=== PATIENT | female | born 1945 | race Caucasian/White ===

== ENCOUNTER → 2016-07-13 | Outpatient (CLI) | payer BC ==
[~2016-07-13] MED LIST: ASPI81TA28 PO; ATOR10TA88 PO; CALC1TAB9 PO; CYAN100T PO; GLUCTAB7 PO; MULT-513 PO
--- NOTE | 2016-07-13 10:59 | DIAGNOSTIC IMAGING REPORT ---
CHEST 2 VIEWS ROUTINE CLINICAL HISTORY: Cough. Evaluate for aspiration COMPARISON STUDY: Chest radiograph June 27, 2016. FINDINGS: Lung volumes are normal. There is no pneumothorax or pleural effusion. Linear left midlung opacity suggests atelectasis. There is no pneumothorax or pleural effusion. Cardiac size is normal. Mediastinal contours are normal. There is mild gaseous distention of the visualized portions of the colon. IMPRESSION: 1. No areas of consolidation to suggest pneumonia. 2. Linear left midlung opacity suggestive of atelectasis. Electronically signed by: Edison Morales M.D. 07/13/2016 10:57 AM
--- NOTE | 2016-07-17 08:22 | CODING QUERY NO DIAGNOSIS ---
: 1945 TREATMENT RENDERED WITHOUT A DIAGNOSIS To promote full compliance with coding requirements relating to patient care, physician participation is requested in all cases of medical billing coder uncertainty. Please assist us with providing a diagnosis/symptom for the test(s) below: A diagnosis/symptom was not documented on your Order. A valid diagnosis/symptom is required to bill all insurances. Please remember that we are unable to code a diagnosis of rule out, probable, possible, questionable, or suspected. Tests that require a diagnosis: DOS: 07/13/16 * Chest X-ray, 2 Views DIAGNOSIS: Provider Signature: Date: Thank you Shelbie Shepard Health Information Management Once completed, please kindly fax back to [phone] For questions please call [phone]
== END | disposition home or self-care (01) ==
LOC: C.RAD 10:32
PROVIDERS: ATTEND Internal Medicine Gastroenterology
DX: R05 Cough (principal); R91.8 Other nonspecific abnormal finding of lung field

== ENCOUNTER 2016-12-03 21:11 | Observation (INO) | payer BC ==
[~2016-12-03] VITALS: Ht 172.7 cm; Wt 73.5 kg
[2016-12-03 21:48] LABS: BASO % 0.4 %; BASO ABS # 0.02 K/uL (0-0.2); COMPLETE YES; EOS % 5.1 %; HEMATOCRIT 39.3 % (37-47); LYMPH % 33.2 %; LYMPH ABS # 1.77 K/uL (1.2-3.4); MEAN CELL VOLUME 86.9 fL (80-100); MEAN CORPUSCULAR HEMOGLOBIN 29.9 pg (25-34); MEAN CORPUSCULAR HGB CONC 34.4 g/dl (32-36); MEAN PLATELET VOLUME 9.1 fL (7.4-10.4); MONO % 14.3 %; PLATELET COUNT 189 K/uL (130-400); RED BLOOD COUNT 4.52 M/uL (4.2-5.4); WHITE BLOOD COUNT 5.33 K/uL (4.8-10.8)
--- NOTE | 2016-12-03 21:53 | EMERGENCY ROOM VISIT NOTE ---
ED Visit Note First contact with patient: 21:23 I did evaluate and examine this patient myself. I did guide management for the patient. I agree with the APC's assessment as discussed. Please see the APC's dictation for further details. I did independently review the 12 EKG, chest x- ray and blood work.
[2016-12-03 21:55] LABS: BLOOD UREA NITROGEN 17 mg/dl (7-18); BUN/CREATININE RATIO 20.6 (10-20); CARBON DIOXIDE 29 mmol/L (21-32); CHLORIDE 104 mmol/L (98-107); CREATININE 0.82 mg/dl (0.60-1.20); GLUCOSE 81 mg/dl (70-99); POTASSIUM 3.3 mmol/L (3.5-5.1); SODIUM 141 mmol/L (136-145)
[2016-12-03 22:00] LABS: ALKALINE PHOSPHATASE 94 U/L (45-117); ALT/SGPT 43 U/L (12-78); AST/SGOT 28 U/L (15-37)
[2016-12-03] MEDS ORDERED: GLUCTAB7 PO (22:07)
[2016-12-03] MEDS ORDERED: MULT-513 PO (22:07)
[2016-12-03] MEDS ORDERED: CALC1TAB9 PO (22:07)
[2016-12-03] MEDS ORDERED: ATOR10TA82 PO (22:07)
[2016-12-03] MEDS ORDERED: ASPI81TA28 PO (22:07)
[2016-12-03] MEDS ORDERED: CYAN100T PO (22:07)
--- NOTE | 2016-12-03 22:08 | DIAGNOSTIC IMAGING REPORT ---
CHEST ONE VIEW PORTABLE HISTORY: Atypical CHEST PAIN COMPARISON: Chest 07/13/2016. FINDINGS: The lungs are clear. Cardiac silhouette is normal in size. No pleural effusions. No pneumothorax. IMPRESSION: No acute process. Electronically signed by: Jeremías Aguila M.D. 12/03/2016 10:06 PM Dictated Date/Time: 12/03/2016 10:05 PM
[2016-12-03] MEDS ORDERED: POTASSIUM CHLORIDE 10 MEQ TABCR PO STA (22:32)
--- NOTE | 2016-12-04 00:40 | EMERGENCY ROOM VISIT NOTE ---
History First contact with patient: 21:23 Chief Complaint: CHEST PAIN Stated Complaint: CHEST PAIN Nursing Triage Summary: pt walked up stairs and she developed a sharp pain in mid chest, sat down and it went away she got up again and she got the pain again radiating to right side of chest and called 911. pain then went away and when ems arrived and had her wak a couple steps to litter she developed a dull ache in mid chest radiating to right side of chest. pt given 2 baby asa enroute History of Present Illness The patient is a 71 year old female who presents to the Emergency Room with complaints of exertional chest pain tonight. Patient states she got up to go to the kitchen developed chest pain and then went to sit down and the chest pain resolved. She did this 3 times over. She is currently chest pain-free. She takes a daily baby aspirin and EMS gave her 2 more. Patient states she is currently asymptomatic. Her father of a massive heart attack at age 58. She does stress test one year ago that was normal per patient. Patient does have high cholesterol. Patient denies diabetes, high blood pressure, tobacco use. Patient states she gets the gym 4 times a week without difficulties. She does circuit training. Patient denies dyspnea, fever, chills, diaphoresis, nausea, vomiting, diarrhea, back pain, radiating pain, leg pain or swelling. Review of Systems See HPI for pertinent positives & negatives. A total of 10 systems reviewed and were otherwise negative. Past Medical/Surgical History Hyperlipidemia Social History Smoking Status: Never Smoker Smokeless Tobacco Use: No Alcohol Use: occasionally Drug Use: none Marital Status: Housing Status: lives with family Occupation Status: retired Current/Historical Medications Scheduled Aspirin (Aspirin Ec), 81 MG PO DAILY Atorvastatin (Lipitor), 10 MG PO DAILY Calcium Citrate-Vitamin D (Citracal + D3 Maximum), 2 TABS PO QAM Cyanocobalamin (Vitamin B-12), 100 MCG PO DAILY Maqsmgehsxo-Wtmyfbrvwkr-Vfn C- (Glucosamine Chondroitin), 1 TAB PO DAILY Multivitamins/Minerals (Mvi With Minerals), 1 TAB PO DAILY Allergies Coded Allergies: Amoxicillin (Verified Allergy, Intermediate, RASH, 12/03/16) Physical Exam Vital Signs Date Time Temp Pulse Resp B/P Pulse Ox O2 Delivery O2 Flow Rate FiO2 12/04/16 00:05 67 26 98 12/04/16 00:01 136/79 12/03/16 23:35 67 21 96 12/03/16 23:32 112/66 12/03/16 23:05 63 16 99 12/03/16 23:01 134/73 12/03/16 22:35 70 17 94 12/03/16 22:30 66 15 121/66 96 Room Air 12/03/16 22:00 67 18 120/64 95 Room Air 12/03/16 21:30 72 19 145/80 98 Room Air 12/03/16 21:22 72 12/03/16 21:16 97 Room Air 12/03/16 21:16 36.5 72 16 157/71 97 Room Air 12/03/16 21:16 97 Room Air Physical Exam VITALS: Vitals are noted on the nurse's note and reviewed by myself. Vital signs hypertensive GENERAL: Pleasant female, in no acute distress, nondiaphoretic, well-developed well-nourished. SKIN: The skin was without rashes, erythema, edema, or bruising. There is no tenting of the skin. Capillary reflex less than 2 seconds. HEAD: Normocephalic atraumatic. EARS: External auditory canals clear, tympanic membranes pearly mccall without erythema or effusion bilaterally. EYES: Pupils equal round and reactive to light and accommodation. Conjunctivae without injection, sclerae without icterus. Extraocular movements intact. NOSE: Patent, turbinates without inflammation or discharge. MOUTH: Mucous membranes moist Pharynx without erythema or exudate. Uvula midline. Airway patent. Tongue does not deviate. NECK: Supple without nuchal rigidity. No lymphadenopathy. No thyromegaly. Cervical spine is nontender. No JVD. HEART: Regular rate and rhythm LUNGS: Clear to auscultation bilaterally without wheezes, rales or rhonchi. No dullness to percussion. No retractions or accessory muscle use. Chest nontender to palpation ABDOMEN: Positive bowel sounds x 4. Normal tympanic percussion. Soft, nontender, without masses or organomegaly. Singh sign negative. No guarding or rebound tenderness. MUSCULOSKELETAL: No muscle atrophy, erythema, or edema noted. NEURO: Patient was alert and oriented to person place and time. Normal sensation to light and sharp touch. No focal neurological deficits. Medical Decision & Procedures Laboratory Results 12/03/16 21:20 Red Blood Count 4.52, Mean Corpuscular Volume 86.9, Mean Corpuscular Hemoglobin 29.9, Mean Corpuscular Hemoglobin Concent 34.4, Mean Platelet Volume 9.1, Neutrophils (%) (Auto) 47.0, Lymphocytes (%) (Auto) 33.2, Monocytes (%) (Auto) 14.3, Eosinophils (%) (Auto) 5.1, Basophils (%) (Auto) 0.4, Neutrophils # (Auto ) 2.51, Lymphocytes # (Auto) 1.77, Monocytes # (Auto) 0.76, Eosinophils # (Auto ) 0.27, Basophils # (Auto) 0.02 12/03/16 21:20 Test 12/03/16 21:20 12/03/16 21:27 White Blood Count 5.33 K/uL (4.8-10.8) Red Blood Count 4.52 M/uL (4.2-5.4) Hemoglobin 13.5 g/dL (12.0-16.0) Hematocrit 39.3 % (37-47) Mean Corpuscular Volume 86.9 fL (80-100) Mean Corpuscular Hemoglobin 29.9 pg (25-34) Mean Corpuscular Hemoglobin Concent 34.4 g/dl (32-36) Platelet Count 189 K/uL (130-400) Mean Platelet Volume 9.1 fL (7.4-10.4) Neutrophils (%) (Auto) 47.0 % Lymphocytes (%) (Auto) 33.2 % Monocytes (%) (Auto) 14.3 % Eosinophils (%) (Auto) 5.1 % Basophils (%) (Auto) 0.4 % Neutrophils # (Auto) 2.51 K/uL (1.4-6.5) Lymphocytes # (Auto) 1.77 K/uL (1.2-3.4) Monocytes # (Auto) 0.76 K/uL (0.11-0.59) Eosinophils # (Auto) 0.27 K/uL (0-0.5) Basophils # (Auto) 0.02 K/uL (0-0.2) RDW Standard Deviation 40.4 fL (36.4-46.3) RDW Coefficient of Variation 12.7 % (11.5-14.5) Immature Granulocyte % (Auto) 0.0 % Immature Granulocyte # (Auto) 0.00 K/uL (0.00-0.02) Anion Gap 8.0 mmol/L (3-11) Est Creatinine Clear Calc Drug Dose 64.4 ml/min Estimated GFR () 84.0 Estimated GFR (Non- 72.5 BUN/Creatinine Ratio 20.6 (10-20) Calcium Level 9.0 mg/dl (8.5-10.1) Total Bilirubin 0.8 mg/dl (0.2-1) Direct Bilirubin 0.2 mg/dl (0-0.2) Aspartate Amino Transf (AST/SGOT) 28 U/L (15-37) Alanine Aminotransferase (ALT/SGPT) 43 U/L (12-78) Alkaline Phosphatase 94 U/L (45-117) Troponin I < 0.015 ng/ml (0-0.045) Total Protein 8.0 gm/dl (6.4-8.2) Albumin 4.0 gm/dl (3.4-5.0) Lipase 194 U/L (73-393) Bedside Troponin I 0.000 ng/ml (0-0.045) Medications Administered Medications (Trade) Dose Ordered Sig/Christiano Route Start Time Stop Time Status Last Admin Dose Admin Potassium Chloride (Klor-Con M10) 20 meq NOW STAT PO 12/03/16 22:32 12/03/16 22:33 DC 12/03/16 22:53 20 MEQ ED Course Prior records/ancillary studies reviewed. Triage Nursing notes reviewed. Additional history obtained from family. The patient's history was concerning for chest pain. Differential diagnosis: Etiologies such as cardiac ischemia, aortic dissection, pulmonary embolism, pneumonia, pneumothorax, musculoskeletal, infections, pericarditis, myocarditis , esophageal rupture, gastrointestinal, as well as others were entertained. Physical examination: As above. ER treatment provided: Patient was observed. She was ready given aspirin and is currently pain-free On reassessment the patient felt better. Diagnostic interpretation by me: The electrocardiogram was negative for pathologic change. Normal sinus, normal intervals, no acute ST-T wave changes. Impression normal sinus rhythm interpreted by myself The labs revealed negative troponin. Stable H&H Imaging studies: Chest x-ray as above CHEST ONE VIEW PORTABLE HISTORY: Atypical CHEST PAIN COMPARISON: Chest 07/13/2016. FINDINGS: The lungs are clear. Cardiac silhouette is normal in size. No pleural effusions. No pneumothorax. IMPRESSION: No acute process. Consultation: A consultation was placed with the hospitalist, Dr Tom. The case was discussed and diagnostics were reviewed. The patient was evaluated in the ER for further treatment. Exam and history seem consistent with chest pain concerns for cardiac and etiology. Symptoms were exertional. They resolved with rest. No recent stress test or echo. She has a family history of heart disease. She does have high cholesterol. She will be evaluated by medicine for possible admission for cardiac rule out. She had a normal EKG and first troponin was negative. Her symptoms were less than 6 hours ago though.By the evaluation outlined above emergent etiologies such as aortic dissection, pulmonary embolism, pneumonia, pneumothorax, infections, pericarditis, myocarditis, gastrointestinal, as well as others were deemed relatively unlikely. The pt informed about the findings as listed above. All questions were answered and pleased with the treatment. Case reviewed by attending. Medical Decision As above Impression Primary Impression: Substernal precordial chest pain Additional Impression: Elevated blood pressure reading Departure Information Dispostion Being Evaluated By Hospitalist Condition FAIR Referrals Ernestina Bautista M.D. (PCP) Patient Instructions My [facility] Problem Qualifiers
[2016-12-04] MEDS ORDERED: MoRPHine SULFATE 2 MG/ML CARP IV PRN (01:00)
[2016-12-04] MEDS ORDERED: POLYETHYLENE (MIRALAX) 17 GM PACK PO PRN (01:00)
[2016-12-04] MEDS ORDERED: ACETAMINOPHEN 325 MG TAB PO PRN (01:00)
[2016-12-04] MEDS ORDERED: MAGNESIUM HYDROXIDE SUSP 30 ML UDC PO PRN (01:00)
[2016-12-04] MEDS ORDERED: NITROGLYCERIN 0.4 MG SL PER TAB CHARGE SL PRN (01:00)
[2016-12-04] MEDS ORDERED: ALUMINUM/MAGNESIUM/SIMETH (MAALOX MAX) 30 ML UDC PO PRN (01:00)
[2016-12-04] MEDS ORDERED: ONDANSETRON INJ 2 MG/ML 2 ML VIAL IV PRN (01:00)
--- NOTE | 2016-12-04 01:35 | History and Physical ---
History & Physical Date & Time of Service: December 04, 2016 at 01:22 Chief Complaint: Chest Pain Primary Care Physician: Ernestina Bautista M.D. History of Present Illness Source: patient 71 y/o F Hx HPL. Pt developed central CP when getting up off her couch which abated after sitting down for a few minutes. She then got up again and the pain recurred prompting her to attend the hospital. The pain was nonradiating and she denies N/V, SOB, diaphoresis or lightheadedness. She denies previous episodes of CP. Past Medical/Surgical History 1) Hyperlipidemia Family History Father from [place] at age 58 Mother at age 94 - unspecified cause Social History Smoking Status: Never Smoker Smokeless Tobacco Use: No Alcohol Use: occasionally Drug Use: none Marital Status: Occupational Status: retired Multi-Drug Resistant Organisms History of MDRO: No Allergies Coded Allergies: Amoxicillin (Verified Allergy, Intermediate, RASH, 12/03/16) Home Medications Scheduled Aspirin (Aspirin Ec), 81 MG PO DAILY Atorvastatin (Lipitor), 10 MG PO DAILY Calcium Citrate-Vitamin D (Citracal + D3 Maximum), 2 TABS PO QAM Cyanocobalamin (Vitamin B-12), 100 MCG PO DAILY Xezrzgpqlfs-Bksavgirxvz-Rgd C- (Glucosamine Chondroitin), 1 TAB PO DAILY Multivitamins/Minerals (Mvi With Minerals), 1 TAB PO DAILY Review of Systems Constitutional: No chills, No fever, No sweats Eyes: No eye pain, No worsening of vision ENT: No hearing loss, No nasal symptoms, No unusual epistaxis Respiratory: No cough, No sputum, No wheezing Cardiovascular: + chest pain, No PND, No orthopnea Abdomen: No nausea, No pain, No vomiting Musculoskeletal: No joint pain, No muscle pain Genitourinary - Female: No dysuria, No hematuria, No urinary frequency, No urinary incontinence, No urinary retention, No urinary urgency Neurologic: No memory loss, No paralysis, No weakness Psychiatric: No depression symptoms Endocrine: No fatigue Integumentary: No rash Allergic / Immunologic: No environmental allergies Physical Exam Vital Signs Date Time Temp Pulse Resp B/P Pulse Ox O2 Delivery O2 Flow Rate FiO2 12/04/16 00:05 67 26 98 12/04/16 00:01 136/79 12/03/16 23:35 67 21 96 12/03/16 23:32 112/66 5/28/17 23:05 63 16 99 12/03/16 23:01 134/73 12/03/16 22:35 70 17 94 12/03/16 22:30 66 15 121/66 96 Room Air 12/03/16 22:00 67 18 120/64 95 Room Air 12/03/16 21:30 72 19 145/80 98 Room Air 12/03/16 21:22 72 12/03/16 21:16 97 Room Air 12/03/16 21:16 36.5 72 16 157/71 97 Room Air 12/03/16 21:16 97 Room Air General Appearance: WD/WN, no apparent distress Head: normocephalic, atraumatic Eyes: normal inspection, PERRL, EOMI ENT: normal ENT inspection, pharynx normal Neck: supple, no JVD Respiratory/Chest: chest non-tender, lungs clear, normal breath sounds Cardiovascular: regular rate, rhythm, no edema, no gallop, no JVD, no murmur, normal peripheral pulses Abdomen/GI: normal bowel sounds, non tender, soft Back: normal inspection, no CVA tenderness, no muscle spasm, normal range of motion Extremities/Musculoskelatal: normal inspection, no calf tenderness, normal capillary refill Neurologic/Psych: auto washer II-XII nml as tested, no motor/sensory deficits, alert, normal mood/affect, normal reflexes, oriented x 3 Skin: normal color, warm/dry, no rash Diagnostics Laboratory Results Results Past 24 Hours Test 12/03/16 21:20 12/03/16 21:27 12/04/16 01:14 Range/Units White Blood Count 5.33 4.8-10.8 K/uL Red Blood Count 4.52 4.2-5.4 M/uL Hemoglobin 13.5 12.0-16.0 g/dL Hematocrit 39.3 37-47 % Mean Corpuscular Volume 86.9 80-100 fL Mean Corpuscular Hemoglobin 29.9 25-34 pg Mean Corpuscular Hemoglobin Concent 34.4 32-36 g/dl Platelet Count 189 130-400 K/uL Mean Platelet Volume 9.1 7.4-10.4 fL Neutrophils (%) (Auto) 47.0 % Lymphocytes (%) (Auto) 33.2 % Monocytes (%) (Auto) 14.3 % Eosinophils (%) (Auto) 5.1 % Basophils (%) (Auto) 0.4 % Neutrophils # (Auto) 2.51 1.4-6.5 K/uL Lymphocytes # (Auto) 1.77 1.2-3.4 K/uL Monocytes # (Auto) 0.76 0.11-0.59 K/uL Eosinophils # (Auto) 0.27 0-0.5 K/uL Basophils # (Auto) 0.02 0-0.2 K/uL RDW Standard Deviation 40.4 36.4-46.3 fL RDW Coefficient of Variation 12.7 11.5-14.5 % Immature Granulocyte % (Auto) 0.0 % Immature Granulocyte # (Auto) 0.00 0.00-0.02 K/uL Sodium Level 141 136-145 mmol/L Potassium Level 3.3 3.5-5.1 mmol/L Chloride Level 104 98-107 mmol/L Carbon Dioxide Level 29 21-32 mmol/L Anion Gap 8.0 3-11 mmol/L Blood Urea Nitrogen 17 7-18 mg/dl Creatinine 0.82 0.60-1.20 mg/dl Est Creatinine Clear Calc Drug Dose 64.4 ml/min Estimated GFR () 84.0 Estimated GFR (Non- 72.5 BUN/Creatinine Ratio 20.6 10-20 Random Glucose 81 70-99 mg/dl Calcium Level 9.0 8.5-10.1 mg/dl Total Bilirubin 0.8 0.2-1 mg/dl Direct Bilirubin 0.2 0-0.2 mg/dl Aspartate Amino Transf (AST/SGOT) 28 15-37 U/L Alanine Aminotransferase (ALT/SGPT) 43 12-78 U/L Alkaline Phosphatase 94 45-117 U/L Troponin I < 0.015 0-0.045 ng/ml Total Protein 8.0 6.4-8.2 gm/dl Albumin 4.0 3.4-5.0 gm/dl Lipase 194 73-393 U/L Bedside Troponin I 0.000 0-0.045 ng/ml EKG Sinus - PACs - no acute ischemic changes Impression Assessment and Plan 71 y/o F Hx HPL. Pt developed central CP when getting up off her couch which abated after sitting down for a few minutes. She then got up again and the pain recurred prompting her to attend the hospital. The pain was nonradiating and she denies N/V, SOB, diaphoresis or lightheadedness. 1) CP - pt will be monitored on telemetry - serial enzymes ordered, NTG or Morphine PRN for CP. Should likely have a stress test as the pain appeared to be exertional. It is noted that she has since ambulated about the hospital room without recurrence, so that if her enzymes are negative, a stress can likely be scheduled in the outpt setting 2) HPL - cont Statin Ful code - Heparin prophylaxis Total time for this admit including review of labs, meds, EKG - discussion with pt and ER attending Level of Care Telemetry Resuscitation Status FULL RESUSCITATION VTE Prophylaxis VTE Risk Assessment Done? Y/N: Yes Risk Level: Low Given or contraindicated: Unfractionated heparin SQ
[2016-12-04] MEDS ORDERED: IV FLUIDS COMPLETED PRN (02:30)
[2016-12-04 02:51] VITALS: BP 128/84; PULSE 73; TEMP 36.7; O2SAT 97; Ht 172.7 cm; Wt 73.5 kg
[2016-12-04 07:42] LABS: PROTHROMBIN TIME (PATIENT) 10.8 SECONDS (9.0-12.0)
[2016-12-04 08:14] VITALS: BP 137/81; PULSE 63; TEMP 36.5; O2SAT 96
[2016-12-04] MEDS ORDERED: CYANOCOBALAMIN 100 MCG TAB (VIT B-12) PO SCH (09:00)
[2016-12-04] MEDS ORDERED: ASPIRIN 81 MG ECTAB PO SCH (09:00)
[2016-12-04] MEDS ORDERED: ATORVASTATIN 10 MG TAB PO SCH (09:00)
--- NOTE | 2016-12-04 11:22 | Discharge Instructions ---
Discharge Instructions Date of Service December 04, 2016. Admission Reason for Admission: Substernal Precordial Chest Pain Discharge Discharge Diagnosis / Problem: atypical chest pain Discharge Goals Goal(s): Diagnostic testing, Therapeutic intervention Activity Recommendations Activity Limitations: resume your previous activity please no intentional exertional activity until after stress test light breakfast and no caffeine in am 5/30 until you hear if stress test is scheduled . Current Hospital Diet Patient's current hospital diet: AHA Diet (Heart Healthy) Discharge Diet Recommended Diet: Regular Diet Pending Studies Studies pending at discharge: no Medical Emergencies . Who to Call and When: Medical Emergencies: If at any time you feel your situation is an emergency, please call 911 immediately. . Non-Emergent Contact Non-Emergency issues call your: Primary Care Provider . . "Provider Documentation" section prepared by Shaggy Allison. . VTE Core Measure Inpt VTE Proph given/why not?: Unfractionated heparin SQ
[2016-12-04 11:45] VITALS: BP 137/81; PULSE 63; TEMP 36.5; O2SAT 96
[2016-12-04] MEDS ORDERED: HEPARIN SOD 5000 UNIT/0.5 ML CARP SQ SCH (14:00)
--- NOTE | 2016-12-04 17:02 | Discharge Summary ---
Discharge Summary Date of Service December 04, 2016. Discharge Summary Admission Date: December 04, 2016 at 01:05 Discharge Date: December 04, 2016 Discharge Disposition: Home Principal Diagnosis: atypical chest pain Medication Reconciliation Continued Medications: Aspirin (Aspirin Ec) 81 Mg Tab 81 MG PO DAILY Atorvastatin (Lipitor) 10 Mg Tab 10 MG PO DAILY, TAB Calcium Citrate-Vitamin D (Citracal + D3 Maximum) 1 Tab Tab 2 TABS PO QAM Cyanocobalamin (Vitamin B-12) 100 Mcg Tab 100 MCG PO DAILY, TAB Ybtctvklgud-Iwqflgubehf-Pjs C- (Glucosamine Chondroitin) 1 Tab Tab 1 TAB PO DAILY Multivitamins/Minerals (Mvi With Minerals) Tab 1 TAB PO DAILY, TAB Discharge Exam Review of Systems: Constitutional: No chills, No fever Respiratory: No cough, No dyspnea on exertion, No sputum Cardiovascular: No chest pain, No orthopnea Abdomen: No diarrhea, No nausea, No pain, No vomiting Neurologic: No memory loss, No paralysis Psychiatric: No anxiety, No depression symptoms Physical Exam: General Appearance: WD/WN, no apparent distress Eyes: PERRL, EOMI Neck: supple, no JVD Respiratory/Chest: chest non-tender, lungs clear, normal breath sounds Cardiovascular: regular rate, rhythm, no murmur Abdomen / GI: normal bowel sounds, non tender, soft Extremities: no pedal edema, normal range of motion Neurologic/Psychiatric: alert, oriented x 3 Hospital Course pt with no further chest pain even with walking around unit, also has been exercising the previous month without issues, she is agreeable to having an outpt stress test ordered this week and to go home with instructions to return if pain recurrs and to have no strenuous activity will continue aspirin and follow up as outpt Total Time Spent: Greater than 30 minutes This includes examination of the patient, discharge planning, medication reconciliation, and communication with other providers. Discharge Instructions Please refer to the electronic Patient Visit Report (Discharge Instructions) for additional information.
== END 2016-12-04 12:05 | disposition home or self-care (01) ==
LOC: ENRESERVTM → ENRESERVDT → EDBD 21:11 → C.EDA 21:12 → C.2T 12-04 01:05
PROVIDERS: ADMIT Internal Medicine; ATTEND Internal Medicine
DX: R07.89 Other chest pain (principal); R03.0 Elevated blood-pressure reading, without diagnosis of hypertension; E78.5 Hyperlipidemia, unspecified; E78.00 Pure hypercholesterolemia, unspecified; Z79.82 Long term (current) use of aspirin; Z82.49 Family history of ischemic heart disease and other diseases of the circulatory system

== ENCOUNTER → 2017-03-27 | Outpatient (CLI) | payer BC ==
--- NOTE | 2017-03-28 08:10 | MAMMOGRAPHY REPORT ---
BILATERAL DIGITAL SCREENING MAMMOGRAM WITH CAD: 03/27/2017 CLINICAL HISTORY: Routine screening. Patient has no complaints. TECHNIQUE: Bilateral CC and MLO views were obtained. Current study was also evaluated with a Compute r Aided Detection (CAD) system. COMPARISON: Comparison is made to exams dated: 03/23/2016 mammogram, 03/19/2015 mammogram, 03/18/2014 m ammogram, 03/17/2013 mammogram, 03/14/2012 mammogram, and 03/14/2011 mammogram - [facility] er. BREAST COMPOSITION: There are scattered areas of fibroglandular density in both breasts. FINDINGS: There is stable asymmetry in the superior left breast, and benign rim calcifications in th e left breast. No suspicious mass, architectural distortion or cluster of suspicious microcalcificati ons is seen. IMPRESSION: ACR BI-RADS CATEGORY 2: BENIGN There is no mammographic evidence of malignancy. A 1 year screening mammogram is recommended. The pa tient will receive written notification of the results. Approximately 10% of breast cancers are not detected with mammography. A negative mammographic report should not delay biopsy if a clinically suggestive mass is present. Christie Jung M.D. ay/:03/27/2017 15:09:25 Reinsurance Claims Analyst: Sonia PRUITT,R, M, [facility] letter sent: Normal 1/2 BI-RADS Code: ACR BI-RADS Category 2: Benign
== END | disposition home or self-care (01) ==
LOC: C.MAMM 08:06
PROVIDERS: ATTEND Obstetrics & Gynecology
DX: Z12.31 Encounter for screening mammogram for malignant neoplasm of breast (principal)

== ENCOUNTER → 2017-07-03 | Outpatient (CLI) | payer BC ==
[~2017-07-03] MED LIST changes: +ATOR10TA82 PO; -ATOR10TA88 PO
--- NOTE | 2017-07-03 15:08 | DIAGNOSTIC IMAGING REPORT ---
CHEST 2 VIEWS ROUTINE CLINICAL HISTORY: PNEUMONIA, UNSPECIFIED ORGANISM COMPARISON STUDY: 12/03/2016 FINDINGS: The bones soft tissues and hemidiaphragms are normal. The cardiomediastinal silhouette is normal. The lungs are clear. The pulmonary vasculature is normal. IMPRESSION: Negative chest. The above report was generated using voice recognition software. It may contain grammatical, syntax or spelling errors. Electronically signed by: Titus Siu M.D. 07/03/2017 3:07 PM Dictated Date/Time: 07/03/2017 3:06 PM
== END | disposition home or self-care (01) ==
LOC: C.RAD1850 14:58
PROVIDERS: ATTEND Family Medicine
DX: J18.9 Pneumonia, unspecified organism (principal)

== ENCOUNTER → 2017-09-04 | Outpatient (CLI) | payer BC | END | disposition home or self-care (01) | LOC: C.MAMM 11:12 | PROVIDERS: ATTEND Family Medicine | DX: M85.88 Other specified disorders of bone density and structure, other site (principal); M85.851 Other specified disorders of bone density and structure, right thigh; M85.852 Other specified disorders of bone density and structure, left thigh ==

== ENCOUNTER → 2017-10-04 | Outpatient (CLI) | payer BC ==
--- NOTE | 2017-10-04 11:17 | DIAGNOSTIC IMAGING REPORT ---
CHEST 2 VIEWS ROUTINE CLINICAL HISTORY: PLEURODYNIA, FALL COMPARISON STUDY: 07/03/2017 FINDINGS: The cardiac and mediastinal contours are normal. There is no evidence of focal pulmonary consolidation. There is no evidence of failure. No pleural effusions are visualized.[ No pneumothorax is visualized. IMPRESSION: No active disease in the chest. Electronically signed by: Bud Wheat M.D. 10/04/2017 11:15 AM Dictated Date/Time: 10/04/2017 11:15 AM
== END | disposition home or self-care (01) ==
LOC: C.RAD1850 10:59
PROVIDERS: ATTEND Nurse Practitioner Family
DX: R07.81 Pleurodynia (principal); W01.10XA Fall on same level from slipping, tripping and stumbling with subsequent striking against unspecified object, initial encounter

== ENCOUNTER → 2018-01-23 | Outpatient (CLI) | payer BC ==
--- NOTE | 2018-01-23 17:17 | DIAGNOSTIC IMAGING REPORT ---
R RIBS UNILATERAL WITH PA CHEST CLINICAL HISTORY: Right rib pain following injury. COMPARISON STUDY: Chest radiograph October 04, 2017. FINDINGS: There is no pneumothorax or pleural effusion. There is suspected biapical scarring which is unchanged. There is no consolidation or evidence for pulmonary edema. Cardiac size is normal. Midsternal contours are normal. No right-sided rib fractures are identified by radiography. IMPRESSION: No pneumothorax. No right rib fractures identified. Electronically signed by: Edison Morales M.D. 01/23/2018 5:16 PM Dictated Date/Time: 01/23/2018 5:10 PM
== END | disposition home or self-care (01) ==
LOC: C.RAD1850 16:16
PROVIDERS: ATTEND Family Medicine
DX: M81.0 Age-related osteoporosis without current pathological fracture (principal); R07.81 Pleurodynia; W19.XXXA Unspecified fall, initial encounter